=== PATIENT | female | born 1985 | race Caucasian/White ===

== ENCOUNTER 2019-10-02 16:24 | Emergency (ER) | payer OTHER ==
[2019-10-02] MEDS ORDERED: Lidocaine 1% 30 ML SDV INJECT ONE (16:56)
--- NOTE | 2019-10-02 16:58 | EDM.PDOC ---
ED HPI GENERAL MEDICAL PROBLEM - General Stated Complaint: LEFT THUMB HOOK IN IT. Time Seen by Provider: 10/02/19 16:53 Source of Information: Reports: Patient, RN History Limitations: Reports: No Limitations - History of Present Illness INITIAL COMMENTS - FREE TEXT/NARRATIVE: Patient presents to ER with complaint of fish hook to left thumb. She estimates it occurred two hours prior to arrival. She has no other complaints. She is unsure of her tetanus status. - Related Data Allergies Allergy/AdvReac Type Severity Reaction Status Date / Time No Known Allergies Allergy Verified 10/02/19 16:50 Home Meds: Home Meds . [No Known Home Meds] 10/02/19 [History] ED ROS GENERAL - Review of Systems Review Of Systems: Comprehensive ROS is negative, except as noted in HPI. ED EXAM, SKIN/RASH Exam: See Below Exam Limited By: No Limitations General Appearance: Alert, WD/WN, No Apparent Distress Ears: Normal External Exam, Normal Canal, Hearing Grossly Normal, Normal TMs Nose: Normal Inspection, Normal Mucosa, No Blood Throat/Mouth: Normal Inspection, Normal Lips Head: Atraumatic Respiratory/Chest: No Respiratory Distress, Lungs Clear, Normal Breath Sounds, No Accessory Muscle Use, Chest Non-Tender Cardiovascular: Normal Peripheral Pulses, Regular Rate, Rhythm (Female) Exam: Deferred Extremities: Normal Inspection, Normal Range of Motion, Other (Fish hook embed ded into posterior aspect of left thumb) Neurological: Alert, Oriented Psychiatric: Normal Affect, Normal Mood Skin: Warm ED SKIN PROCEDURES - Foreign Body Removal Consent Obtained:: Patient Performing Doctor:: Juan Chance (MERCEDES Corbin) Foreign Body Other Location Comment:: Fish hook in left thumb Anesthesia Type: Local Anesthesia Other:: Lidocaine 1% Findings:: Fish hook removed intact. Complications:: No Comments:: Minimal blood loss. Patient tolerated it well. Tetanus given today. Departure - Departure Time of Disposition: 17:17 Disposition: Home, Self-Care 01 Condition: Good Clinical Impression: Fish hook injury of finger of left hand - Discharge Information *PRESCRIPTION DRUG MONITORING PROGRAM REVIEWED*: No *COPY OF PRESCRIPTION DRUG MONITORING REPORT IN PATIENT [place]: No
[2019-10-02] MEDS ORDERED: Diphtheria,Pertussis(Acell),Tetanus Vaccine 0.5 ML SDV IM ONE (17:04)
== END 2019-10-02 17:25 | disposition home or self-care (01) ==
LOC: DL.ED 16:24
DX: S60.352A Superficial foreign body of left thumb, initial encounter (principal); Z23 Encounter for immunization; W45.8XXA Other foreign body or object entering through skin, initial encounter
CPT/HCPCS: 90471; 90715; 99283; J2001